=== PATIENT | female | born 1940 | race Caucasian/White ===

== ENCOUNTER 2017-01-02 21:56 | Emergency (ER) | payer MEDICAID, OTHER ==
[~2017-01-02] VITALS: Ht 152.4 cm; Wt 74.8 kg
[2017-01-02 21:56] VITALS: BP_SYST 119; PULSE 66; RESP 17; TEMP 97.6; O2SAT 94
[~2017-01-02 21:56] MED LIST: BACL10TA PO; DITXL5 PO; GABA-531 PO; GLU500 PO; HYDR-1189 PO; LEVE500T13 PO; LEVO75TA7 PO; LORA1TAB PO; MORP30CA16 PO; PRO20 PO; PRO40 PO; SSREG SUBCUT; TEMA7.5C PO; TRAM50TA92 PO
--- NOTE | 2017-01-02 21:56 | NUR ---
Patient to ER bed 1 to gown for evaluation. Side rails up. Report given to NAYLA Ventura
--- NOTE | 2017-01-02 22:05 | NUR ---
Pt BIB ambulance , status post-mechanical fall, neck pain , right arm pain, 9/10 sharp, mild headache. Pt stated that she took percocet and xanax prior to the incident. Pt stated she was reaching for a magazine and fell backward, denies dizziness, deniess KO, got up with assistance. A&Ox4, denies SOB or chestpain, denies N/V/D, c-collar present upon arrival. Will continue to monitor
[2017-01-02] MEDS ORDERED: ALPR0.2583 PO (22:32)
--- NOTE | 2017-01-02 22:33 | NUR ---
MD carter at bedside examining pt
[2017-01-02] MEDS ORDERED: DITXL5 PO (22:45)
[2017-01-02] MEDS ORDERED: KETOROLAC TROMETHAMINE 60 MG/2 ML VIAL IM ONE (22:45)
[2017-01-02] MEDS ORDERED: HYDR-1189 PO (22:46)
[2017-01-02] MEDS ORDERED: OXYC-130 PO (22:50)
[2017-01-02] MEDS ORDERED: METR500T PO (22:50)
[2017-01-02] MEDS ORDERED: IBUP-1480 PO (22:52)
[2017-01-02] MEDS ORDERED: CIPR-211 PO (22:52)
--- NOTE | 2017-01-02 23:30 | NUR ---
Pt able to ambulate from bed to hallway, gait stable.
[2017-01-03 00:30] VITALS: BP 116/48; PULSE 68; RESP 18; TEMP 97.6; O2SAT 96
--- NOTE | 2017-01-03 00:30 | NUR ---
Patient given written and verbal discharge instructions and verbalizes understanding. ER MD carter discussed with patient the results and treatment provided. Patient in stable condition. ID arm band removed. rx for norco given. Patient educated on pain management and to follow up with PMD. Pain Scale 0/10. Opportunity for questions provided and answered.
== END 2017-01-03 00:30 | disposition home or self-care (01) ==
LOC: SED 21:56
DX: M54.2 Cervicalgia (principal); M54.5 Low back pain; J45.909 Unspecified asthma, uncomplicated; E11.9 Type 2 diabetes mellitus without complications; K21.9 Gastro-esophageal reflux disease without esophagitis; I10 Essential (primary) hypertension; Z96.89 Presence of other specified functional implants; Z88.0 Allergy status to penicillin; Z88.2 Allergy status to sulfonamides; Z88.1 Allergy status to other antibiotic agents; Z86.79 Personal history of other diseases of the circulatory system; Z85.43 Personal history of malignant neoplasm of ovary; Z79.899 Other long term (current) drug therapy
CPT/HCPCS: 96372; 99283; J1885

== ENCOUNTER 2017-03-25 06:58 | Emergency (ER) | payer OTHER, MEDICAID ==
[~2017-03-25] VITALS: Ht 167.6 cm; Wt 90.7 kg
[~2017-03-25 06:58] MED LIST changes: +ALPR0.2583 PO; +CIPR-211 PO; +IBUP-1480 PO; +METR500T PO; +OXYC-130 PO
[2017-03-25 07:02] VITALS: BP_SYST 121
[2017-03-25] MEDS ORDERED: MORPHINE 4 MG/ML INJ. SYRINGE IM ONE (07:30)
[2017-03-25] MEDS ORDERED: DIPHENHYDRAMINE INJ 50 MG/ML VIAL IM ONE (07:30)
[2017-03-25 08:42] LABS: BILIRUBIN,URINE NEGATIVE (NEGATIVE); BLOOD, URINE NEGATIVE (NEGATIVE); CLARITY/URINE CLEAR (CLEAR); COLOR,URINE YELLOW (YELLOW); GLUCOSE,URINE NEGATIVE (NEGATIVE); KETONES,URINE NEGATIVE (NEGATIVE); LEUKOCYTE ESTERASE ,URINE NEGATIVE (NEGATIVE); NITRITE, URINE NEGATIVE (NEGATIVE); PH,URINE 5.5 (5.0-8.0); PROTEIN URINE NEGATIVE (NEGATIVE); UROBILINOGEN,URINE 0.2 (0.2-1.0)
[2017-03-25 08:43] LABS: BASOPHILS % (AUTO) 0.3 % (0.0-2.0); EOSINOPHILS # (AUTO) 0.3 K/uL (0.0-0.4); EOSINOPHILS % (AUTO) 4.1 % (0.0-4.0); HEMATOCRIT 33.4 % (36-48); HEMOGLOBIN 10.5 g/dL (12.0-16.0); LYMPHOCYTES # (AUTO) 2.3 K/uL (1.0-5.5); LYMPHOCYTES % (AUTO) 29.2 % (20.5-51.5); MEAN CORPUSCULAR HEMOGLOBIN 24 pg (27-31); MEAN CORPUSCULAR HGB CONC 32 % (32-36); MEAN CORPUSCULAR VOLUME 76 fL (79.0-98.0); MONOCYTES # (AUTO) 0.5 K/uL (0.0-1.0); MONOCYTES % (AUTO) 6.9 % (1.7-9.3); NEUTROPHILS # (AUTO) 4.8 K/uL (1.8-7.7); NEUTROPHILS % (AUTO) 59.5 % (40.0-70.0); PLATELET COUNT (AUTO) 354 K/uL (130-430); RED BLOOD CELL COUNT(AUTO) 4.39 MIL/uL (4.2-6.2); RED CELL DISTRIBUTION WIDTH 16.4 % (9.0-15.0); WHITE BLOOD COUNT (AUTO) 7.9 K/uL (4.8-10.8)
[2017-03-25 08:49] LABS: ANION GAP 4 (5-15); CALCIUM 8.4 mg/dL (8.4-11.0); CHLORIDE 101 mmol/L (98-107); CREATININE 0.76 mg/dL (0.55-1.30); GLUCOSE 94 mg/dL (70-99); POTASSIUM 4.1 mmol/L (3.5-5.1); SODIUM SERUM 136 mmol/L (136-145); UREA NITROGEN, BLOOD 14 mg/dL (8-21)
[2017-03-25 08:53] LABS: INR 0.9 (0.8-1.2); PROTHROMBIN TIME 10.2 SECS (9.5-12.5)
[2017-03-25 08:54] LABS: ALANINE AMINOTRANSFERASE 20 U/L (12-78); ALBUMIN 3.2 g/dL (3.4-4.8); ASPARTATE AMINOTRANSFERASE 21 U/L (10-37); TOTAL BILIRUBIN 0.2 mg/dL (0.0-1.0); TOTAL PROTEIN, SERUM 6.7 g/dL (6.4-8.3)
[2017-03-25 09:35] VITALS: BP_SYST 104
== END 2017-03-25 09:35 | disposition home or self-care (01) ==
LOC: SED 06:58
DX: S16.1XXA Strain of muscle, fascia and tendon at neck level, initial encounter (principal); S40.011A Contusion of right shoulder, initial encounter; J44.9 Chronic obstructive pulmonary disease, unspecified; E11.9 Type 2 diabetes mellitus without complications; K21.9 Gastro-esophageal reflux disease without esophagitis; I10 Essential (primary) hypertension; E03.9 Hypothyroidism, unspecified; Z85.43 Personal history of malignant neoplasm of ovary; Z96.89 Presence of other specified functional implants; Z86.79 Personal history of other diseases of the circulatory system; Z88.0 Allergy status to penicillin; Z88.2 Allergy status to sulfonamides; Z88.1 Allergy status to other antibiotic agents; W06.XXXA Fall from bed, initial encounter; Y93.89 Activity, other specified; Y92.89 Other specified places as the place of occurrence of the external cause; Y99.8 Other external cause status
CPT/HCPCS: 36415; 70450; 72125; 73030; 80053; 81003; 83605; 83880; 84484; 85025; 85610; 85730; 87040; 93005; 96372; 99285; J1200; J2270

== ENCOUNTER 2017-03-30 00:42 | Emergency (ER) | payer OTHER, MEDICAID ==
[~2017-03-30] VITALS: Ht 152.4 cm; Wt 72.6 kg
[2017-03-30 00:42] VITALS: BP_SYST 140
[2017-03-30] MEDS ORDERED: ONDANSETRON 4 MG ODT TAB PO ONE (01:15)
[2017-03-30] MEDS ORDERED: MORPHINE 4 MG/ML INJ. SYRINGE IM ONE (01:15)
[2017-03-30 04:30] VITALS: BP_SYST 129
== END 2017-03-30 04:30 | disposition home or self-care (01) ==
LOC: SED 00:42
DX: G89.29 Other chronic pain (principal); M54.5 Low back pain; M25.512 Pain in left shoulder; M25.572 Pain in left ankle and joints of left foot; J44.9 Chronic obstructive pulmonary disease, unspecified; E11.9 Type 2 diabetes mellitus without complications; K21.9 Gastro-esophageal reflux disease without esophagitis; I10 Essential (primary) hypertension; E03.9 Hypothyroidism, unspecified; Z88.0 Allergy status to penicillin; Z88.2 Allergy status to sulfonamides; Z88.1 Allergy status to other antibiotic agents; Z96.89 Presence of other specified functional implants; Z85.43 Personal history of malignant neoplasm of ovary; Z79.4 Long term (current) use of insulin; Z79.899 Other long term (current) drug therapy
CPT/HCPCS: 73600; 74176; 96372; 99284; J2270; Q0162